=== PATIENT | male | born 2000 | race Caucasian/White ===

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

== ENCOUNTER 2020-05-23 14:43 | Emergency (ER) | payer OTHER ==
[2020-05-23 15:06] VITALS: BP 115/68; PULSE 99; TEMP 99.7; BMI 20.2
[2020-05-23] MEDS ORDERED: KETOROLAC TROMETHAMINE 30 MG/1 ML VIAL IM ONE (15:19)
[2020-05-23] MEDS ORDERED: ACETAMINOPHEN 325 MG TABLET (FP) PO ONE (15:19)
[2020-05-23] MEDS ORDERED: METHOCARBAMOL 500 MG TABLET PO ONE (15:19)
[2020-05-23] MEDS ORDERED: LIDOCAINE 5% TOPICAL PATCH TP ONE (15:19)
[2020-05-23] MEDS ORDERED: KETOROLAC TROMETHAMINE 30 MG/1 ML VIAL ONE (15:33)
[2020-05-23] MEDS ORDERED: METHOCARBAMOL 500 MG TABLET ONE (15:33)
[2020-05-23] MEDS ORDERED: LIDOCAINE 5% TOPICAL PATCH ONE (15:34)
[2020-05-23] MEDS ORDERED: ACETAMINOPHEN 325 MG TABLET (FP) ONE (15:43)
[2020-05-23] MEDS ORDERED: LIDOCAINE PATCH REMOVAL MC SCH (22:00)
== END 2020-05-23 15:54 | disposition home or self-care (01) ==
LOC: FER 14:43
PROC: 3E0233Z Introduction of Anti-inflammatory into Muscle, Percutaneous Approach (ICD-10-PCS; principal; 2020-05-23)
DX: M54.5 Low back pain (principal); V87.7XXA Person injured in collision between other specified motor vehicles (traffic), initial encounter
CPT/HCPCS: 99285-25